=== PATIENT | male | born 1975 | race Caucasian/White ===

== ENCOUNTER 2024-02-04 12:16 | Emergency (ER) | payer OTHER, SELFPAY ==
[2024-02-04 12:20] VITALS: BP 123/80; PULSE 71; RESP 16; TEMP 36.3; O2SAT 97; BMI 31.9
--- NOTE | 2024-02-04 12:44 | ED_ITS ---
HPI - Extremity Injury (Lower) <Elisabet West PA-C - Last Filed: 02/04/24 18:30> General Chief Complaint: Extremity Injury, Lower Stated Complaint: rt calf injury Time Seen by Provider: 02/04/24 12:44 Source: patient Mode of arrival: Ambulatory History of Present Illness HPI Narrative: Patient is a 49-year-old male presenting for evaluation of right lower calf pain after jumping onto a shovel this morning at 11am. He reports that he felt a popping and tearing sensation in his proximal right calf. He states that right after the incident he was able to dorsiflex plantar flex and invert and francia his right ankle. As time has elapsed since the incident, he has felt increasing sensation of cramping in his right calf. He reports that at this time, several hours after the incident, he is having difficulty bearing weight on the ball of his right foot as well as dorsiflexing. He denies numbness in his right foot. Denies any right knee pain. He reports the most tender area of his pain is in the proximal aspect of his right calf. He denies any history of smoking nor history of clot. He denies family history of clot. He denies any recent surgery. He states that he is only taking medication occasionally due to back issues in his not taking any medication chronically. He reports he took Tylenol 1000 mg this morning and 200 mg of Advil. He denies any history of kidney issues. He does state that Advil occasionally causes his stomach discomfort. Related Data Previous Rx's Medication Instructions Recorded baclofen 5 mg tablet 5 mg PO TID 5 days #15 tabs 02/04/24 baclofen 5 mg tablet 5 mg PO TID 5 days #15 tabs 02/04/24 Allergies Allergy/AdvReac Type Severity Reaction Status Date / Time No Known Drug Allergies Allergy Verified 02/04/24 12:20 Review of Systems <Elisabet West PA-C - Last Filed: 02/04/24 18:30> Review of Systems Narrative: See HPI Patient History <Elisabet West PA-C - Last Filed: 02/04/24 18:30> Social History Smoking Status: Never smoker Smoking Status: Never smoker Substance Use Type: does not use Exam <Elisabet West PA-C - Last Filed: 02/04/24 18:30> Initial Vital Signs Initial Vital Signs: Vital Signs Temperature 97.3 F L 02/04/24 12:20 Pulse Rate 71 02/04/24 12:20 Respiratory Rate 16 02/04/24 12:20 Blood Pressure 123/80 02/04/24 12:20 Pulse Oximetry 97 02/04/24 12:20 Oxygen Delivery Method Room Air 02/04/24 12:20 GENERAL: 49 year old patient appears stated age. Well-developed patient, in no acute distress. HEAD: Atraumatic. Normocephalic. EYES: Pupils equal round No scleral icterus. No injection or drainage. NECK: Trachea midline, supple RESPIRATORY: Speaking comfortably normal tone of voice without any increased work of breathing. EXTREMITIES: Nontender to palpation of right knee, right popliteal pulse 2 +, no tenderness to palpation of proximal fibula or tibial plateau, patient has tenderness to palpation over medial proximal gastrocnemius, Samuels's test of right Achilles tendon is negative, movement of heel is demonstrated. Patient demonstrates intact movement of toes as well as dorsiflexion and plantar flexion although both dorsiflexion and plantar flexion recreate pain in his right gastrocnemius. No bruising or erythema noted over right calf, no bony tenderness palpated over medial lateral malleolus, metatarsals or toes. NEURO: AOx3. SKIN: No rash or erythema of visible areas <Kim Scott DO - Last Filed: 02/06/24 08:11> Initial Vital Signs Initial Vital Signs: Vital Signs Temperature 97.3 F L 02/04/24 12:20 Pulse Rate 71 02/04/24 12:20 Respiratory Rate 16 02/04/24 12:20 Blood Pressure 123/80 02/04/24 12:20 Pulse Oximetry 97 02/04/24 12:20 Oxygen Delivery Method Room Air 02/04/24 12:20 Course <Elisabet West PA-C - Last Filed: 02/04/24 18:30> Orders Ordered: Discontinued Medications Baclofen (Baclofen 10 Mg Tablet) 10 mg PO NOW ONE Stop: 02/04/24 13:16 Last Admin: 02/04/24 13:54 Dose: 10 mg Documented By: RB Ketorolac Tromethamine (Ketorolac 30 Mg/Ml Vial) 30 mg IM NOW ONE Stop: 02/04/24 13:30 Last Admin: 02/04/24 13:54 Dose: 30 mg Documented By: RB Vital Signs Vital signs: Vital Signs - 8 hr 02/04/24 12:20 02/04/24 12:50 02/04/24 14:13 Temperature 97.3 F L 97.9 F Pulse Rate 71 72 Pulse Rate [Right Dorsalis Pedis] 76 Respiratory Rate 16 18 Blood Pressure 123/80 126/76 Pulse Oximetry 97 98 Oxygen Delivery Method Room Air Room Air <Kim Scott DO - Last Filed: 02/06/24 08:11> Orders Ordered: Discontinued Medications Baclofen (Baclofen 10 Mg Tablet) 10 mg PO NOW ONE Stop: 02/04/24 13:16 Last Admin: 02/04/24 13:54 Dose: 10 mg Documented By: RB Ketorolac Tromethamine (Ketorolac 30 Mg/Ml Vial) 30 mg IM NOW ONE Stop: 02/04/24 13:30 Last Admin: 02/04/24 13:54 Dose: 30 mg Documented By: RB Vital Signs Vital signs: Vital Signs - 8 hr 02/04/24 12:20 02/04/24 12:50 02/04/24 14:13 Temperature 97.3 F L 97.9 F Pulse Rate 71 72 Pulse Rate [Right Dorsalis Pedis] 76 Respiratory Rate 16 18 Blood Pressure 123/80 126/76 Pulse Oximetry 97 98 Oxygen Delivery Method Room Air Room Air MDM - Extremity Injury (Lower) <Elisabet West PA-C - Last Filed: 02/04/24 18:30> MDM Narrative Medical decision making narrative: Patient is a 49-year-old male presenting for evaluation of right calf pain after feeling a popping sensation when stepping on a shovel. Exam is consistent with the gastrocnemius tear. Patient's physical exam is reassuring for intact right Achilles tendon. My suspicion for fracture is low as patient has no bony tenderness on exam and he was able to walk right after the incident. Suspicion for clot is low as his pain is directly connected to a traumatic incident with a popping sensation and patient has no risk factors such as smoking recent surgery or family history of clotting or personal history of clotting to raise suspicion for this. We discussed that he likely does not need imaging for deep vein thrombosis or x-ray imaging. Discussed treatment of gastrocnemius strain to include compression rest and close follow up with primary care provider or ortho as he is increasing activity. We have provided him with Phuc wrap, crutches, 10 mg of baclofen to help reduce muscle cramping as well as 30 mg of Toradol. Patient is agreeable with plan of care, he will plan to follow up with his primary care provider or Ortho if he can not get in his primary care provider t his week. He was comfortable being discharged home with care plan and instructions as discussed in discharge below. ER return precautions discussed in discharge. Multiple etiologies for patient's symptoms considered including, but not limited to: DVT, ankle sprain, fracture, high ankle sprain, Achilles tendon tear, gastrocnemius strain/tear. Findings and discharge diagnosis discussed with patient/family followed by verbalization of understanding Return precautions discussed with patient/family whom verbalize understanding of diagnosis and plan 183 baclofen recent to pharmacy, pharmacy isn't initially receive Rx. Discharge Plan Departure Patient Disposition: Home Clinical Impression: Gastrocnemius muscle tear Qualifiers: Encounter type: initial encounter Laterality: right Qualified Code(s): S86.111A - Strain of other muscle(s) and tendon(s) of posterior muscle group at lower leg level, right leg, initial encounter Activity Restrictions/Additional Instructions: Thank you for coming in today for your care. *You have been diagnosed with a gastrocnemius tear within the calf of the right leg. Thankfully, it does not appear today that your Achilles tendon was ruptured. Treatment includes rest, elevation, ice and compression of your right calf. This may take several weeks to completely resolve, and we discussed the importance of having close monitoring with your primary care provider or orthopedic to continue evaluation to make sure you are healing appropriately. Emphasize rest of your right calf during this 1st week. During rest, you may gently move her foot to keep blood moving in her right calf to decrease risk of clot from an activity. You may walk with minimal weight-bearing assisted by crutches. As pain is improving, you may slowly increase activity. You were given a dose of a muscle relaxer in the emergency department as well as a shot of Toradol which is an NSAID. You may take Advil again in 8 hours if needed. You may continue to take Tylenol through the afternoon according to the bottle instructions. I have provided a prescription of muscle relaxer for you to help reduce the cramping in her right leg. We advised that this may cause increased drowsiness. Do not drink alcohol with this or drive. *What to do: *Please continue to take your regular medications as directed. [x ] New medication prescriptions sent to your pharmacy: [facility] in [place] *Please follow up with your primary care provider in 2-3 days, call for an appointment. Let them know you were seen in the Emergency Department and that we ask that you be seen in follow up. We will electronically transmit a record of today's note if your PCP is in our system. *If you do not have a primary care provider please contact the [facility] Resource line at [phone]. They will ask some questions about your medical history and help get you set up with a doctor in the community. *Return to Emergency Department if you should have any new, worsening or concerning symptoms, such as severe pain in right calf, difficulty breathing, chest pain, or other concerning signs or symptoms. Prescriptions: New baclofen 5 mg tablet 5 mg PO TID 5 Days Qty: 15 0RF baclofen 5 mg tablet 5 mg PO TID 5 Days Qty: 15 0RF Rx Instructions: May cause drowsiness. Referrals: Provider,Asher BRIDGES [Primary Care Provider] - Stand Alone Forms: Patient Portal/API ED Sign-out <Kim Scott DO - Last Filed: 02/06/24 08:11> Cosign ED Attending Elizabeth Attestation: I was available for consultation.
[2024-02-04 12:50] VITALS: PULSE 76
[2024-02-04] MEDS: BACLOFEN 10 MG TABLET PO (13:54)
[2024-02-04] MEDS: KETOROLAC 30 MG/ML VIAL IM (13:54)
[2024-02-04 14:13] VITALS: BP 126/76; PULSE 72; RESP 18; TEMP 36.6; O2SAT 98
== END 2024-02-04 14:14 | disposition home or self-care (01) ==
PROVIDERS: Emergency Provider Physician Assistant
DX: S86.111A Strain of other muscle(s) and tendon(s) of posterior muscle group at lower leg level, right leg, initial encounter (principal); X58.XXXA Exposure to other specified factors, initial encounter
CPT/HCPCS: 96372; 99283; J1885

== ENCOUNTER → 2025-09-25 19:13 | Outpatient (CLI) | payer OTHER, SELFPAY ==
--- NOTE | 2025-09-25 19:16 | DI.MRI.S_ITS ---
PROCEDURE: MR ANKLE LT WO CON INDICATIONS: ANKLE PAIN - LEFT TECHNIQUE: Noncontrast sagittal T1 spin echo and T2 fast spin echo with fat saturation, axial proton density fast spin echo and T2 fast spin echo with fat saturation, coronal T1 spin echo and T2 fast spin echo with fat saturation through the ankle/hindfoot. COMPARISON: None. FINDINGS: Image quality: Excellent. Bones and joints: Mild midfoot and hindfoot joint osteoarthritis. Tiny osteochondral injury involving lateral weight-bearing portion of talar dome measures 2 mm in size with mild surrounding edema. Tiny osteochondral injury involving adjacent anterior aspect of distal tibial plafond is also seen. No fracture or dislocation.. Well-defined plantar calcaneal enthesophyte is seen. Small tibiotalar joint effusion, no loose bodies. Medial structures: The posterior tibialis tendon is thickened with small to moderate amount of fluid distending tendon sheath at the level of medial malleolus extending to the level of calcaneocuboid joint. The flexor digitorum longus, and flexor hallucis longus tendons are intact. The posterior tibial neurovascular bundle appears normal within the tarsal tunnel, without extrinsic mass effect. The deltoid ligament and spring ligament are thickened with intrasubstance T2 hyperintense signal. Lateral structures: The anterior talofibular ligament is thickened with intrasubstance T2 hyperintense signal. The calcaneofibular, and posterior talofibular ligaments appear intact. More superiorly, the anterior and posterior tibiofibular ligaments appear mildly thickened with intrasubstance T2 hyperintense signal. The peroneus longus and brevis tendons are mildly thickened at the level of lateral malleolus extending to the level of calcaneocuboid joint. The sinus tarsi demonstrates normal fatty signal, without edema, fibrosis, or cyst formation. Anterior structures: The tibialis anterior, extensor hallucis longus, and extensor digitorum longus tendons appear intact. The dorsal talonavicular ligament appears intact. Posterior and plantar structures: Mildly thickened distal Achilles tendon at its posterior calcaneal insertion. Thickened medial band of plantar fascia at its calcaneal insertion is seen. No abductor digiti quinti muscle atrophy to suggest Jeffrey neuropathy. IMPRESSION: 1. Mild midfoot and hindfoot joint osteoarthritis. Tiny osteochondral injuries are noted involving lateral weight-bearing portion of talar dome and adjacent distal tibial plafond. No fracture or dislocation. Small joint effusion, no loose bodies. 2. Low to moderate grade tenosynovitis involving posterior tibialis tendon at the level of medial malleolus extending to the level of calcaneocuboid joint. 3. Mild tendinosis involving peroneus tendons at the level of lateral malleolus extending to the level of calcaneocuboid joint. 4. Low-grade sprain/intrasubstance partial-thickness tear involving deltoid ligament and spring ligament. Low to moderate grade intrasubstance partial-thickness tear involving anterior talofibular ligament. Low-grade intrasubstance partial-thickness tear involving anterior and posterior tibial fibular ligaments. No full-thickness ankle ligament rupture. 5. Distal Achilles tendinosis without Achilles tendon rupture. 6. Well-defined plantar calcaneal enthesophyte with thickened medial band of plantar fascia suggestive of plantar fasciitis. Dictated by: Chris Zee M.D. on 09/26/2025 at 9:34 Approved by: Chris Zee M.D. on 09/26/2025 at 9:39
== END ==
PROVIDERS: Referring Provider Podiatrist; Visit Provider Podiatrist
DX: S93.492A Sprain of other ligament of left ankle, initial encounter (principal); S93.432A Sprain of tibiofibular ligament of left ankle, initial encounter; M76.822 Posterior tibial tendinitis, left leg; M19.072 Primary osteoarthritis, left ankle and foot; M25.572 Pain in left ankle and joints of left foot; M77.32 Calcaneal spur, left foot; M25.472 Effusion, left ankle; M65.872 Other synovitis and tenosynovitis, left ankle and foot
CPT/HCPCS: 73721